=== PATIENT | female | born 1995 | race Caucasian/White ===

== ENCOUNTER 2016-08-01 11:42 | Emergency (ER) | payer OTHER ==
--- NOTE | 2016-08-01 15:04 | ED ORDER SUMMARY ---
..... Patient: MICKEY MARTEL OrderSheet [facility] VisitID: [id number] [address] [place] [address] 20y, F Registration Date/Time: 08/01/2016 ORDER SHEET Weight: 72.5 kg (stated) Allergies: No Known Drug Allergy GENERAL ORDERS: Serum Qualitative Urgent (12:08/01/2016 HBivens A.R.N.P.) (Ack 12:43 TBergley) (12:54 LSullivan R.N.) CBC w Diff Urgent (12:08/01/2016 HBivens A.R.N.P.) (Ack 12:43 TBergley) (12:53 LSullivan R.N.) CMP Urgent (12:08/01/2016 HBivens A.R.N.P.) (Ack 12:43 TBergley) (12:53 LSullivan R.N.) Pelvic Exam Setup (12:08/01/2016 HBivens A.R.N.P.) (12:39 LSullivan R.N.) Type & Rh Urgent (13:25 08/01/2016 TBergley written order HBivens A.R.N.P.) (Ack 13:29 TBergley) (14:32 MWinterer R.N.) Serum Quantitative Urgent (13:25 08/01/2016 TBergley written order HBivens A.R.N.P.) (Ack 13:29 TBergley) (14:32 MWinterer R.N.) US OB 1st Trimester w Transvag (6weeks) Urgent (13:26 08/01/2016 TBergley written order HBivens A.R.N.P.) (Ack 13:29 TBergley) (15:23 LSullivan R.N.) MEDICATION ORDERS: IV FLUIDS: ORDER SHEET NOTES: [Electronically signed by Chitra Delgadillo R.N. (15:23 08/01/2016)] [Electronically signed by Meaghan Garcia.R.N.PTracy (23:19 08/01/2016)] [Electronically locked/signed by Chitra Delgadillo R.N. (15:23 08/01/2016)]
--- NOTE | 2016-08-01 15:04 | ED CLINICAL REPORT ---
Clinical Report - Physicians/Mid Levels [facility] [address] [place] [address] 08/01/2016 11:48 Patient: MICKEY MARTEL Time Seen: 12:09; initial patient contact, initial documentation, patient care assumed. Arrived- By private vehicle. Historian- patient. HISTORY OF PRESENT ILLNESS Chief Complaint: VAGINAL BLEEDING. This started today and still present and worsening. The symptoms are described as moderate. Modifying factors. Not worsened by anything. Not relieved by anything. The patient has had abdominal pain. She has had constant, crampy pelvic pain, described as "pain". She has had abnormal bleeding described as heavier than normal period and passing clots started with spotting, then got heavier like period, and now even heavier than a period. She is . No vaginal pain, low back pain, flank pain, missed period(s) or irregular periods. No vaginal discharge, genital lesions, pain with urination, urinary frequency or urgency of urination. No hematuria. Sexually active- unprotected sex and heterosexual. No exposure to sexually transmitted disease. Does not use control measures. Currently . In 1st trimester. confirmed with urine test. Has had no care. G 2. P 0. Ab 1. Not receiving care. Similar symptoms previously: None. Recent medical care: The patient was seen recently in a clinic. ( went to clinic about a week ago, found out she was ). REVIEW OF SYSTEMS No vomiting, diarrhea, fever, difficulty breathing or chest pain. All systems otherwise negative, except as recorded above. PAST HISTORY See nurses notes. ( PROBLEMS: no known problems. ADDITIONAL SURGERIES: Torn meniscus knee surgery. --12:02 Chitra Delgadillo, RTracyN.). SOCIAL HISTORY Former smoker. No alcohol use or drug use. No recent travel. Is a local resident. FAMILY HISTORY Negative. ADDITIONAL NOTES The nursing notes have been reviewed with agreement regarding the chief complaint, HPI, ROS, PMH and patient medications and allergies. PHYSICAL EXAM Vital Signs: 08/01/2016 11:59 BP: 115/68. HR: 86. RR: 18. O2 saturation: 100%. Temp: 98.7 F. Pain level now: 7/10. Have been reviewed as normal and appear to be correct. Appearance: Alert. Oriented X3. No acute distress. HEENT: Normal external inspection. ENT: Pharynx normal. Neck: Neck supple. CVS: Heart sounds normal. Respiratory: No respiratory distress. Breath sounds normal. Chest nontender. Abdomen: Soft and nontender. Bowel sounds normal. No organomegaly. No mass. Back: Normal external inspection. : External inspection normal. Speculum exam abnormal. Moderate vaginal bleeding, consisting of bright red blood, and dark blood, via the cervical os. No vaginal bleeding from a cervical lesion or vaginal laceration. No vaginal discharge. Cervical os open slightly. No tissue present. No cervicitis. No herpes-like lesions. Bimanual exam normal. Skin: Skin warm and dry. Normal skin color. No rash. Normal skin turgor. Extremities: Extremities nontender. No lower extremity edema. Neuro: Oriented X 3. Mood/affect normal. No motor deficit. No sensory deficit. LABS, X-RAYS, AND EKG Pelvic Sonogram: . no iup no ectopic verbal report from [employer]. Interpretation time: 1445. Laboratory Tests: Serum Qualitative: (JORGE: 08/01/2016 12:50) ( [facility] 08/01/2016 13:12) Final results Test Result Flag Units (Reference) , SERUM POSITIVE CBC w Diff: (JORGE: 08/01/2016 12:50) ( [facility] 08/01/2016 13:00) Final results Test Result Flag Units (Reference) WHITE BLOOD COUNT 4.9 K/uL (4.5-11.5) RED BLOOD COUNT 4.03 M/uL (4.00-5.20) HEMOGLOBIN 12.8 gm/dL (12.0-16.0) HEMATOCRIT 37.4 % (36.0-46.0) MEAN CELL VOLUME 93 fL (80-100) MEAN CORPUSCULAR HGB 32 pg (26-34) MEAN CORPUSCULAR HGB CONC 34 g/dL (31-37) RED CELL DISTRIBUTION WIDTH 11.9 % (11.6-14.8) PLATELET COUNT 230 K/uL (150-400) NEUTROPHIL % 62.5 % (50-75) LYMPH % 23.2 L % (25-40) MONO % 12.4 % (3-14) EOSINOPHIL % 1.5 % (0-4) BASOPHIL % 0.4 % (0-2) Serum Quantitative: (JORGE: 08/01/2016 12:50) ( [facility] 08/01/2016 14:01) Final results Test Result Flag Units (Reference) BETA HCG, QUANTITATIVE 96 mIU/mL REFERENCE RANGE:Adult Males: <2 mIU/mLNon- Females: <6 mIU/mL Females:Approximate Approximate hCGGestational Age Range (mIU/mL) 0-1 week 0-501-2 weeks 40-3002-3 weeks 100-95641-2 weeks 500-06510-0 months 5,000-200,0002-3 months 10,000-100,0002nd trimester 3,000-50,0003rd trimester 1,000-50,000 CMP: (JORGE: 08/01/2016 12:50) ( [facility] 08/01/2016 13:14) Final results Test Result Flag Units (Reference) GLUCOSE 95 mg/dL (70-110) BUN 6 L mg/dL (7-18) CREATININE 0.6 mg/dL (0.6-1.3) Estimated GFR >60 mL/min Estimated GFR- >60 mL/min Note: Persistent reduction over 3 months in eGFR<60 mL/min/1.73 m2 defines CKD. Patients with eGFR values>=60 mL/min/1.73 m2 may also have CKD if evidence ofpersistent proteinuria. Additional information may be foundat www.kidney.org. SODIUM 140 mmol/L (136-145) POTASSIUM 3.5 mmol/L (3.5-5.1) CHLORIDE 103 mmol/L (98-107) CARBON DIOXIDE 26 mmol/L (21-32) CALCIUM 8.7 mg/dL (8.5-10.1) TOTAL PROTEIN 7.6 g/dL (6.4-8.2) ALBUMIN 4.1 g/dL (3.3-5.0) BILIRUBIN, TOTAL 0.3 mg/dL (0.0-1.0) ALKALINE PHOSPHATASE 49 U/L (46-116) AST (SGOT) 13 L U/L (15-37) ALT (SGPT) 18 U/L (12-78) Type & Rh: (JORGE: 08/01/2016 12:50) ( MsgRcvd 08/01/2016 13:58) Final results Test Result Flag Units (Reference) PATIENT BLOOD TYPE O Positive . PROGRESS AND PROCEDURES Patient counseled in person regarding the patient's stable condition, test results and diagnosis. 1455. Differential Diagnosis: I considered vaginitis, vaginal polyps, vaginal lesion, vaginal cancer, vulvar infection, ovarian cysts, polycystic disease of the ovaries, endometriosis, uterine fibroids, intrauterine , ectopic , incomplete , threatened , retained products of , endometritis and dysfunctional uterine bleeding as a possible cause of vaginal bleeding in this patient. This is a partial list of diagnoses considered. Above considerations are based on history, physical exam, reassessment and laboratory data. Differential diagnosis was discussed with patient. Disposition: Discharged home in good and improved condition (15:04). Condition: good and stable. CLINICAL IMPRESSION Complete spontaneous (miscarriage).No complications. INSTRUCTIONS Do not work today, tomorrow. No sexual contact. Warnings: GENERAL WARNINGS: Return or contact your physician immediately if your condition worsens or changes unexpectedly, if not improving as expected, or if other problems arise. Specifically return if problem worsens. Prescription Medications: Ultram 50 mg tablets: take 1-2 orally every 6 hours as needed for pain. Dispense twenty (20). No refills. Substitution is permissible. Understanding of the discharge instructions verbalized by patient. Follow-up with: Jose Marie MD, Obstetrics/Gynecology, , [facility], [address] [place] [address], [facility] Follow up Wednesday even if well. Call for an appointment. Summary of care provided to patient. (Electronically signed by Meaghan Garcia A.R.N.P. 08/01/2016 23:19)
--- NOTE | 2016-08-01 15:04 | ED NURSING NOTES ---
Clinical Report - Nurses [facility] [address] [place] [address] 08/01/2016 11:48 Patient: MICKEY MARTEL TRIAGE Triage time 12:01. Acuity: LEVEL 3. Chief Complaint: ABDOMINAL PAIN and CRAMPS and VAGINAL BLEEDING. Alert. --12:06 Chitra Delgadillo R.N. 11:59 08/01/16. BP: 115/68. HR: 86. RR: 18. O2 saturation: 100%. Temp: 98.7 F. Pain level now: 08/31. --12:06 Chitra Delgadillo R.N. Weight: 72.5 kg stated. Height/Length: 70 inches Per Patient. BMI: 22.9. --12:00 Chitra Delgadillo R.N. Medications None. --12:02 Chitra Delgadillo R.N. Allergies No Known Drug Allergy. --12:02 Chitra Delgadillo R.N. History Arrived by private vehicle. Historian: patient. Accompanied by friend. Primary physician ([facility]). Onset. (2 hours ago). 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 PAST MEDICAL HX: Negative. Immunizations: up-to-date. Currently : 6 or 7 weeks, [facility]. In 1st trimester. confirmed with urine test. G 1. P 0. SOCIAL HX: Former smoker, end date 01/2016. No alcohol use or drug use. SELF HARM ASSESSMENT: A self harm assessment was performed. The patient answered "no" to the question "Do you have thoughts of harming or killing yourself?". NUTRITIONAL RISK ASSESSMENT: The nutritional risk assessment revealed no deficiencies. FUNCTIONAL ASSESSMENT: Functional assessment: no impairments noted. LEARNING NEEDS ASSESSMENT: The learning needs assessment revealed no barriers. ABUSE ASSESSMENT: Abuse assessment: ("yes") The patient was asked "Do you feel safe in your home?". SKIN INTEGRITY ASSESSMENT: Skin integrity risk assessment completed. No skin integrity risk identified. --12:06 Chitra Delgadillo R.N. PROBLEMS: no known problems. ADDITIONAL SURGERIES: Torn meniscus knee surgery. --12:02 Chitra Delgadillo R.N. Interventions ID band on patient. To room. --12:06 Chitra Delgadillo R.N. PHYSICAL ASSESSMENT 12:07 08/01/16. GENERAL / NEURO / PSYCH: Alert. Oriented X 4. --12:07 Chitra Delgadillo R.N. NURSING PROGRESS NOTES 12:08/01/16. Patient identifiers checked. Call light placed in reach. Bed placed in lowest position. Patient ready for evaluation- chart flagged. --12:07 Chitra Delgadillo R.N. 12:15 08/01/16. Patient gowned (and warm blanket applied. JUNIOR WEB DESIGNER cart placed outside of the room.). --12:15 Chitra Delgadillo R.N. PELVIC EXAM: Pelvic exam performed by MANAGER ESTATE. Assisted by one tech. Preparation: patient placed in lithotomy position. Total time of assist / procedure: 15 minutes. --12:40 Chitra Delgadillo R.N. 12:54 08/01/16. ( [place] labs drawn by oil processing technician, sent to lab.). --12:54 Chitra Delgadillo R.N. Checked patient name: patient confirmed. Blood samples drawn from the right antecubital space with 21g butterfly by tech per protocol ; labeled in presence of the patient: rainbow set. --12:57 Margaret Brown 13:38 08/01/16. BP: 115/64. HR: 81. RR: 18. O2 saturation: 100%. Pain level now: 0/10. --13:38 Chitra Delgadillo R.N. DISPOSITION / DISCHARGE Departure time: 1511. Condition at departure: unchanged. No learning barriers present. Discharge instructions provided and reviewed with the patient and family. Reviewed medication(s) information. Prescription(s) given to the patient. Reviewed referral to an advertising analyst and family practice for followup. Patient and family verbalized understanding. Written instructions provided. ( Lab results given to patient, ok'd by MANAGER ESTATE first.). The patient was discharged home and accompanied by family. She left the Emergency Department ambulatory and via private vehicle. --15:17 Chitra Delgadillo R.N. 15:10 08/01/16. BP: 118/82. HR: 80. RR: 18. O2 saturation: 100%. Temp: 98.5 F. Pain level now: 05/01. --15:17 Chitra Delgadillo R.N. Locked/Released at 08/01/2016 15:23 by Chitra Delgadillo R.N.
--- NOTE | 2016-08-01 15:04 | ED NURSING NOTES ---
Clinical Report - Nurses [facility] [address] [place] [address] 08/01/2016 11:48 Patient: MICKEY MARTEL TRIAGE Triage time 12:01. Acuity: LEVEL 3. Chief Complaint: ABDOMINAL PAIN and CRAMPS and VAGINAL BLEEDING. Alert. --12:06 Chitra Delgadillo R.N. 11:59 08/01/16. BP: 115/68. HR: 86. RR: 18. O2 saturation: 100%. Temp: 98.7 F. Pain level now: 08/31. --12:06 Chitra Delgadillo R.N. Weight: 72.5 kg stated. Height/Length: 70 inches Per Patient. BMI: 22.9. --12:00 Chitra Delgadillo R.N. Medications None. --12:02 Chitra Delgadillo R.N. Allergies No Known Drug Allergy. --12:02 Chitra Delgadillo R.N. History Arrived by private vehicle. Historian: patient. Accompanied by friend. Primary physician ([facility]). Onset. (2 hours ago). 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 PAST MEDICAL HX: Negative. Immunizations: up-to-date. Currently : 6 or 7 weeks, [facility]. In 1st trimester. confirmed with urine test. G 1. P 0. SOCIAL HX: Former smoker, end date 01/2016. No alcohol use or drug use. SELF HARM ASSESSMENT: A self harm assessment was performed. The patient answered "no" to the question "Do you have thoughts of harming or killing yourself?". NUTRITIONAL RISK ASSESSMENT: The nutritional risk assessment revealed no deficiencies. FUNCTIONAL ASSESSMENT: Functional assessment: no impairments noted. LEARNING NEEDS ASSESSMENT: The learning needs assessment revealed no barriers. ABUSE ASSESSMENT: Abuse assessment: ("yes") The patient was asked "Do you feel safe in your home?". SKIN INTEGRITY ASSESSMENT: Skin integrity risk assessment completed. No skin integrity risk identified. --12:06 Chitra Delgadillo R.N. PROBLEMS: no known problems. ADDITIONAL SURGERIES: Torn meniscus knee surgery. --12:02 Chitra Delgadillo R.N. Interventions ID band on patient. To room. --12:06 Chitra Delagdillo R.N. PHYSICAL ASSESSMENT 12:07 08/01/16. GENERAL / NEURO / PSYCH: Alert. Oriented X 4. --12:07 Chitra Delgadillo R.N. NURSING PROGRESS NOTES 12:08/01/16. Patient identifiers checked. Call light placed in reach. Bed placed in lowest position. Patient ready for evaluation- chart flagged. --12:07 Chitra Delgadillo R.N. 12:15 08/01/16. Patient gowned (and warm blanket applied. SHINGLE SHEARING MACHINE OPERATOR cart placed outside of the room.). --12:15 Chitra Delgadillo R.N. PELVIC EXAM: Pelvic exam performed by SERVICE EMPLOYEE. Assisted by one tech. Preparation: patient placed in lithotomy position. Total time of assist / procedure: 15 minutes. --12:40 Chitra Delgadillo R.N. 12:54 08/01/16. ( [place] labs drawn by converting technician, sent to lab.). --12:54 Chitra Delgadillo R.N. Checked patient name: patient confirmed. Blood samples drawn from the right antecubital space with 21g butterfly by tech per protocol ; labeled in presence of the patient: rainbow set. --12:57 Margaret Brown 13:38 08/01/16. BP: 115/64. HR: 81. RR: 18. O2 saturation: 100%. Pain level now: 0/10. --13:38 Chitra Delgadillo R.N. DISPOSITION / DISCHARGE Departure time: 1511. Condition at departure: unchanged. No learning barriers present. Discharge instructions provided and reviewed with the patient and family. Reviewed medication(s) information. Prescription(s) given to the patient. Reviewed referral to an brief writer and family practice for followup. Patient and family verbalized understanding. Written instructions provided. ( Lab results given to patient, ok'd by SERVICE EMPLOYEE first.). The patient was discharged home and accompanied by family. She left the Emergency Department ambulatory and via private vehicle. --15:17 Chitra Delgadillo R.N. 15:10 08/01/16. BP: 118/82. HR: 80. RR: 18. O2 saturation: 100%. Temp: 98.5 F. Pain level now: 05/01. --15:17 Chitra Delgadillo R.N. Locked/Released at 08/01/2016 15:23 by Chitra Delgadillo R.N.
--- NOTE | 2016-08-01 15:04 | ED CLINICAL REPORT ---
Clinical Report - Physicians/Mid Levels [facility] [address] [place] [address] 08/01/2016 11:48 Patient: MICKEY MARTEL Time Seen: 12:09; initial patient contact, initial documentation, patient care assumed. Arrived- By private vehicle. Historian- patient. HISTORY OF PRESENT ILLNESS Chief Complaint: VAGINAL BLEEDING. This started today and still present and worsening. The symptoms are described as moderate. Modifying factors. Not worsened by anything. Not relieved by anything. The patient has had abdominal pain. She has had constant, crampy pelvic pain, described as "pain". She has had abnormal bleeding described as heavier than normal period and passing clots started with spotting, then got heavier like period, and now even heavier than a period. She is . No vaginal pain, low back pain, flank pain, missed period(s) or irregular periods. No vaginal discharge, genital lesions, pain with urination, urinary frequency or urgency of urination. No hematuria. Sexually active- unprotected sex and heterosexual. No exposure to sexually transmitted disease. Does not use control measures. Currently . In 1st trimester. confirmed with urine test. Has had no care. G 2. P 0. Ab 1. Not receiving care. Similar symptoms previously: None. Recent medical care: The patient was seen recently in a clinic. ( went to clinic about a week ago, found out she was ). REVIEW OF SYSTEMS No vomiting, diarrhea, fever, difficulty breathing or chest pain. All systems otherwise negative, except as recorded above. PAST HISTORY See nurses notes. ( PROBLEMS: no known problems. ADDITIONAL SURGERIES: Torn meniscus knee surgery. --12:02 Chitra Delgadillo, RTracyN.). SOCIAL HISTORY Former smoker. No alcohol use or drug use. No recent travel. Is a local resident. FAMILY HISTORY Negative. ADDITIONAL NOTES The nursing notes have been reviewed with agreement regarding the chief complaint, HPI, ROS, PMH and patient medications and allergies. PHYSICAL EXAM Vital Signs: 08/01/2016 11:59 BP: 115/68. HR: 86. RR: 18. O2 saturation: 100%. Temp: 98.7 F. Pain level now: 7/10. Have been reviewed as normal and appear to be correct. Appearance: Alert. Oriented X3. No acute distress. HEENT: Normal external inspection. ENT: Pharynx normal. Neck: Neck supple. CVS: Heart sounds normal. Respiratory: No respiratory distress. Breath sounds normal. Chest nontender. Abdomen: Soft and nontender. Bowel sounds normal. No organomegaly. No mass. Back: Normal external inspection. : External inspection normal. Speculum exam abnormal. Moderate vaginal bleeding, consisting of bright red blood, and dark blood, via the cervical os. No vaginal bleeding from a cervical lesion or vaginal laceration. No vaginal discharge. Cervical os open slightly. No tissue present. No cervicitis. No herpes-like lesions. Bimanual exam normal. Skin: Skin warm and dry. Normal skin color. No rash. Normal skin turgor. Extremities: Extremities nontender. No lower extremity edema. Neuro: Oriented X 3. Mood/affect normal. No motor deficit. No sensory deficit. LABS, X-RAYS, AND EKG Pelvic Sonogram: . no iup no ectopic verbal report from [facility]. Interpretation time: 1445. Laboratory Tests: Serum Qualitative: (JORGE: 08/01/2016 12:50) ( [facility] 08/01/2016 13:12) Final results Test Result Flag Units (Reference) , SERUM POSITIVE CBC w Diff: (JORGE: 08/01/2016 12:50) ( [facility] 08/01/2016 13:00) Final results Test Result Flag Units (Reference) WHITE BLOOD COUNT 4.9 K/uL (4.5-11.5) RED BLOOD COUNT 4.03 M/uL (4.00-5.20) HEMOGLOBIN 12.8 gm/dL (12.0-16.0) HEMATOCRIT 37.4 % (36.0-46.0) MEAN CELL VOLUME 93 fL (80-100) MEAN CORPUSCULAR HGB 32 pg (26-34) MEAN CORPUSCULAR HGB CONC 34 g/dL (31-37) RED CELL DISTRIBUTION WIDTH 11.9 % (11.6-14.8) PLATELET COUNT 230 K/uL (150-400) NEUTROPHIL % 62.5 % (50-75) LYMPH % 23.2 L % (25-40) MONO % 12.4 % (3-14) EOSINOPHIL % 1.5 % (0-4) BASOPHIL % 0.4 % (0-2) Serum Quantitative: (JORGE: 08/01/2016 12:50) ( [facility] 08/01/2016 14:01) Final results Test Result Flag Units (Reference) BETA HCG, QUANTITATIVE 96 mIU/mL REFERENCE RANGE:Adult Males: <2 mIU/mLNon- Females: <6 mIU/mL Females:Approximate Approximate hCGGestational Age Range (mIU/mL) 0-1 week 0-501-2 weeks 40-3002-3 weeks 100-64969-4 weeks 500-60536-4 months 5,000-200,0002-3 months 10,000-100,0002nd trimester 3,000-50,0003rd trimester 1,000-50,000 CMP: (JORGE: 08/01/2016 12:50) ( [facility] 08/01/2016 13:14) Final results Test Result Flag Units (Reference) GLUCOSE 95 mg/dL (70-110) BUN 6 L mg/dL (7-18) CREATININE 0.6 mg/dL (0.6-1.3) Estimated GFR >60 mL/min Estimated GFR- >60 mL/min Note: Persistent reduction over 3 months in eGFR<60 mL/min/1.73 m2 defines CKD. Patients with eGFR values>=60 mL/min/1.73 m2 may also have CKD if evidence ofpersistent proteinuria. Additional information may be foundat www.kidney.org. SODIUM 140 mmol/L (136-145) POTASSIUM 3.5 mmol/L (3.5-5.1) CHLORIDE 103 mmol/L (98-107) CARBON DIOXIDE 26 mmol/L (21-32) CALCIUM 8.7 mg/dL (8.5-10.1) TOTAL PROTEIN 7.6 g/dL (6.4-8.2) ALBUMIN 4.1 g/dL (3.3-5.0) BILIRUBIN, TOTAL 0.3 mg/dL (0.0-1.0) ALKALINE PHOSPHATASE 49 U/L (46-116) AST (SGOT) 13 L U/L (15-37) ALT (SGPT) 18 U/L (12-78) Type & Rh: (JORGE: 08/01/2016 12:50) ( MsgRcvd 08/01/2016 13:58) Final results Test Result Flag Units (Reference) PATIENT BLOOD TYPE O Positive . PROGRESS AND PROCEDURES Patient counseled in person regarding the patient's stable condition, test results and diagnosis. 1455. Differential Diagnosis: I considered vaginitis, vaginal polyps, vaginal lesion, vaginal cancer, vulvar infection, ovarian cysts, polycystic disease of the ovaries, endometriosis, uterine fibroids, intrauterine , ectopic , incomplete , threatened , retained products of , endometritis and dysfunctional uterine bleeding as a possible cause of vaginal bleeding in this patient. This is a partial list of diagnoses considered. Above considerations are based on history, physical exam, reassessment and laboratory data. Differential diagnosis was discussed with patient. Disposition: Discharged home in good and improved condition (15:04). Condition: good and stable. CLINICAL IMPRESSION Complete spontaneous (miscarriage).No complications. INSTRUCTIONS Do not work today, tomorrow. No sexual contact. Warnings: GENERAL WARNINGS: Return or contact your physician immediately if your condition worsens or changes unexpectedly, if not improving as expected, or if other problems arise. Specifically return if problem worsens. Prescription Medications: Ultram 50 mg tablets: take 1-2 orally every 6 hours as needed for pain. Dispense twenty (20). No refills. Substitution is permissible. Understanding of the discharge instructions verbalized by patient. Follow-up with: Jose Marie MD, Obstetrics/Gynecology, , [facility], [address] [place] [address], [facility] Follow up Wednesday even if well. Call for an appointment. Summary of care provided to patient. (Electronically signed by Meaghan Garcia A.R.N.P. 08/01/2016 23:19)
--- NOTE | 2016-08-01 15:04 | ED ORDER SUMMARY ---
..... Patient: MICKEY MARTEL OrderSheet [facility] VisitID: [id number] [address] [place] [address] 20y, F Registration Date/Time: 08/01/2016 ORDER SHEET Weight: 72.5 kg (stated) Allergies: No Known Drug Allergy GENERAL ORDERS: Serum Qualitative Urgent (12:08/01/2016 HBivens A.R.N.P.) (Ack 12:43 TBergley) (12:54 LSullivan R.N.) CBC w Diff Urgent (12:08/01/2016 HBivens A.R.N.P.) (Ack 12:43 TBergley) (12:53 LSullivan R.N.) CMP Urgent (12:08/01/2016 HBivens A.R.N.P.) (Ack 12:43 TBergley) (12:53 LSullivan R.N.) Pelvic Exam Setup (12:08/01/2016 HBivens A.R.N.P.) (12:39 LSullivan R.N.) Type & Rh Urgent (13:25 08/01/2016 TBergley written order HBivens A.R.N.P.) (Ack 13:29 TBergley) (14:32 MWinterer R.N.) Serum Quantitative Urgent (13:25 08/01/2016 TBergley written order HBivens A.R.N.P.) (Ack 13:29 TBergley) (14:32 MWinterer R.N.) US OB 1st Trimester w Transvag (6weeks) Urgent (13:26 08/01/2016 TBergley written order HBivens A.R.N.P.) (Ack 13:29 TBergley) (15:23 LSullivan R.N.) MEDICATION ORDERS: IV FLUIDS: ORDER SHEET NOTES: [Electronically signed by Chitra Delgadillo R.N. (15:23 08/01/2016)] [Electronically signed by Meaghan Garcia.R.N.PTracy (23:19 08/01/2016)] [Electronically locked/signed by Chitra Delgadillo R.N. (15:23 08/01/2016)]
--- NOTE | 2016-08-01 17:25 | DIAGNOSTIC IMAGING REPORT ---
PROCEDURE: US OB 1ST TRIMESTER W/TRANSVAG INDICATION: ABNORMAL BLEEDING TECHNIQUE: Flores scale, color, and spectral Doppler transabdominal and endovaginal sonographic images of the first trimester gravid uterus were obtained. COMPARISON: None. FINDINGS: TRANSABDOMINAL SCANS: The uterus is suboptimally evaluated. Urinary bladder is incompletely filled. Adnexa are not well evaluated. Kidneys appear grossly normal. TRANSVAGINAL SCANS: Anteverted uterus contains a tiny junctional zone cyst measuring about 4.3 mm along the posterior wall of the uterine body. The endometrial stripe measures approximately 6.5 mm in thickness. No endometrial fluid collections. The cervix is closed. No endocervical fluid. The right ovary measures 3.8 x 1.6 by 4.8 cm and demonstrates a normal follicular echotexture and vascularity. The left ovary measures 3.7 x 1.5 x 3.2 cm and also contains normal follicular echotexture. No dominant follicles are identified. Normal vascularity in left ovary. No suspicious adnexal masses or free fluid. IMPRESSION: 1. Viable gestation was not identified. Continued follow-up with serial Beta hCG levels is recommended. Follow-up ultrasound in 2-3 weeks recommended if Beta hCG levels continues arise. 2. Posterior midbody junctional zone cyst, less likely an gestational sac. 3. Normal ovaries without corpus luteum cyst visible.
--- NOTE | 2016-08-01 23:19 | ED MED RECONCILIATION SUMMARY ---
Patient: MICKEY MARTEL Medication Reconciliation Report [facility] VisitID: [id number] [address] [place] [address] 20y, F Registration Date/Time: 08/01/2016 Weight: 72.5 kg Height/Length: 70 in. BMI: 22.9 ALLERGIES: No Known Drug Allergy The patient's Home Medications are listed below: NONE. The source(s) of the original Home Medication information: Not obtained. The following Medications were given to the patient in the Emergency Department: None. The following Medications were prescribed to the patient: Ultram 50 mg tablets: take 1-2 orally every 6 hours as needed for pain. Dispense twenty (20). No refills. Substitution is permissible. -- Meaghan Garcia A.R.N.P.
--- NOTE | 2016-08-01 23:19 | ED DISCHARGE INSTRUCTIONS ---
Patient: MICKEY MARTEL General Instructions [facility] VisitID: [id number] [address] [place] [address] 20y, F Registration Date/Time: 08/01/2016 Complete spontaneous (miscarriage).No complications. INSTRUCTIONS Do not work today, tomorrow. No sexual contact. Warnings: GENERAL WARNINGS: Return or contact your physician immediately if your condition worsens or changes unexpectedly, if not improving as expected, or if other problems arise. Specifically return if problem worsens. Prescription Medications: Ultram 50 mg tablets: take 1-2 orally every 6 hours as needed for pain. Dispense twenty (20). No refills. Substitution is permissible. Understanding of the discharge instructions verbalized by patient. Follow-up with: Jose Marie MD, Obstetrics/Gynecology, , [facility], [address] [place] [address] Follow up Wednesday even if well. Call for an appointment. Summary of care provided to patient. ADDITIONAL INFORMATION Miscarriage, Spontaneous (Completed) Todays exam shows that your has ended suddenly. While this may be an emotionally difficult time for you, know that it is not an uncommon event. A miscarriage can be due to various causes. These include a problem with the babys chromosomes (genes that carry the information needed for life) or with fertilization or implantation that didnt happen correctly. In most cases no cause can be found. Be assured that this miscarriage was not the result of anything that you did wrong, and it will not interfere with your ability to become in the future. It appears that your miscarriage is complete and all tissue from the has passed. If there are parts of the tissue that remain in the uterus, you will probably have more cramping and bleeding. Home Care: You may resume normal activities if you are not having heavy bleeding or pain. Until the bleeding stops completely and to prevent infection: Do not have sexual intercourse for as long as your healthcare provider tells you. Use sanitary pads instead of tampons. Do not douche. If you feel sadness or grief, it may help to talk about your feelings with family and friends, or with a counselor. Follow Up: Make an appointment to see your doctor in the next one to two weeks for a checkup. If cramping and bleeding return and continue for more than a few days, call your doctor or return here for an exam. The doctor may need to remove remaining tissue from the uterus to stop the bleeding and prevent infection. Or, you may be prescribed medication to take at home to help your body expel the remaining tissue. Note: If you had an ultrasound it will be reviewed by a specialist. You will be notified of any new findings that may affect your care. Get Prompt Medical Attention if any of the following occur: Heavy bleeding (soaking one new pad an hour over three hours) Bleeding that does not stop after ten days Foul-smelling vaginal discharge Fever of 100.4F (38C) or higher, or as directed by your healthcare provider Increasing lower abdominal pain Weakness, dizziness, or fainting Tramadol Hydrochloride Oral tablet What is this medicine? TRAMADOL (TRA ma dole) is a pain reliever. It is used to treat moderate to severe pain in adults. How should I use this medicine? Take this medicine by mouth with a full glass of water. Follow the directions on the prescription label. If the medicine upsets your stomach, take it with food or milk. Do not take more medicine than you are told to take. Talk to your engineering mechanic regarding the use of this medicine in children. Special care may be needed. What side effects may I notice from receiving this medicine? Side effects that you should report to your doctor or health college and career counselor as soon as possible: allergic reactions like skin rash, itching or hives, swelling of the face, lips, or tongue breathing difficulties, wheezing confusion itching light headedness or fainting spells redness, blistering, peeling or loosening of the skin, including inside the mouth seizures Side effects that usually do not require medical attention (report to your doctor or health college and career counselor if they continue or are bothersome): constipation dizziness drowsiness headache nausea, vomiting What may interact with this medicine? Do not take this medicine with any of the following medications: MAOIs like Carbex, Eldepryl, Marplan, Nardil, and Parnate This medicine may also interact with the following medications: alcohol or medicines that contain alcohol antihistamines benzodiazepines bupropion carbamazepine or oxcarbazepine clozapine cyclobenzaprine digoxin furazolidone linezolid medicines for depression, anxiety, or psychotic disturbances medicines for migraine headache like almotriptan, eletriptan, frovatriptan, naratriptan, rizatriptan, sumatriptan, zolmitriptan medicines for pain like pentazocine, buprenorphine, butorphanol, meperidine, nalbuphine, and propoxyphene medicines for sleep muscle relaxants naltrexone phenobarbital phenothiazines like perphenazine, thioridazine, chlorpromazine, mesoridazine, fluphenazine, prochlorperazine, promazine, and trifluoperazine procarbazine warfarin What if I miss a dose? If you miss a dose, take it as soon as you can. If it is almost time for your next dose, take only that dose. Do not take double or extra doses. Where should I keep my medicine? Keep out of the reach of children. Store at room temperature between 15 and 30 degrees C (59 and 86 degrees F). Keep container tightly closed. Throw away any unused medicine after the expiration date. What should I tell my health care provider before I take this medicine? They need to know if you have any of these conditions: brain tumor depression drug abuse or addiction head injury if you frequently drink alcohol containing drinks kidney disease or trouble passing urine liver disease lung disease, asthma, or breathing problems seizures or epilepsy suicidal thoughts, plans, or attempt; a previous suicide attempt by you or a family member an unusual or allergic reaction to tramadol, codeine, other medicines, foods, dyes, or preservatives or trying to get breast-feeding What should I watch for while using this medicine? Tell your doctor or health college and career counselor if your pain does not go away, if it gets worse, or if you have new or a different type of pain. You may develop tolerance to the medicine. Tolerance means that you will need a higher dose of the medicine for pain relief. Tolerance is normal and is expected if you take this medicine for a long time. Do not suddenly stop taking your medicine because you may develop a severe reaction. Your body becomes used to the medicine. This does NOT mean you are addicted. Addiction is a behavior related to getting and using a drug for a non-medical reason. If you have pain, you have a medical reason to take pain medicine. Your doctor will tell you how much medicine to take. If your doctor wants you to stop the medicine, the dose will be slowly lowered over time to avoid any side effects. You may get drowsy or dizzy. Do not drive, use machinery, or do anything that needs mental alertness until you know how this medicine affects you. Do not stand or sit up quickly, especially if you are an older patient. This reduces the risk of dizzy or fainting spells. Alcohol can increase or decrease the effects of this medicine. Avoid alcoholic drinks. You may have constipation. Try to have a bowel movement at least every 2 to 3 days. If you do not have a bowel movement for 3 days, call your doctor or health college and career counselor. Your mouth may get dry. Chewing sugarless gum or sucking hard candy, and drinking plenty of water may help. Contact your doctor if the problem does not go away or is severe. You have been given the following additional information: Miscarriage, Spontaneous (Completed) Tramadol Hydrochloride Oral tablet Do not work today, tomorrow. (Electronically signed by Meaghan Garcia A.R.N.P. 08/01/2016 23:19)
--- NOTE | 2016-08-01 23:19 | ED DISCHARGE INSTRUCTIONS ---
Patient: MICKEY MARTEL General Instructions [facility] VisitID: [id number] [address] [place] [address] 20y, F Registration Date/Time: 08/01/2016 Complete spontaneous (miscarriage).No complications. INSTRUCTIONS Do not work today, tomorrow. No sexual contact. Warnings: GENERAL WARNINGS: Return or contact your physician immediately if your condition worsens or changes unexpectedly, if not improving as expected, or if other problems arise. Specifically return if problem worsens. Prescription Medications: Ultram 50 mg tablets: take 1-2 orally every 6 hours as needed for pain. Dispense twenty (20). No refills. Substitution is permissible. Understanding of the discharge instructions verbalized by patient. Follow-up with: Jose Marie MD, Obstetrics/Gynecology, , [facility], [address] [place] [address] Follow up Wednesday even if well. Call for an appointment. Summary of care provided to patient. ADDITIONAL INFORMATION Miscarriage, Spontaneous (Completed) Todays exam shows that your has ended suddenly. While this may be an emotionally difficult time for you, know that it is not an uncommon event. A miscarriage can be due to various causes. These include a problem with the babys chromosomes (genes that carry the information needed for life) or with fertilization or implantation that didnt happen correctly. In most cases no cause can be found. Be assured that this miscarriage was not the result of anything that you did wrong, and it will not interfere with your ability to become in the future. It appears that your miscarriage is complete and all tissue from the has passed. If there are parts of the tissue that remain in the uterus, you will probably have more cramping and bleeding. Home Care: You may resume normal activities if you are not having heavy bleeding or pain. Until the bleeding stops completely and to prevent infection: Do not have sexual intercourse for as long as your healthcare provider tells you. Use sanitary pads instead of tampons. Do not douche. If you feel sadness or grief, it may help to talk about your feelings with family and friends, or with a counselor. Follow Up: Make an appointment to see your doctor in the next one to two weeks for a checkup. If cramping and bleeding return and continue for more than a few days, call your doctor or return here for an exam. The doctor may need to remove remaining tissue from the uterus to stop the bleeding and prevent infection. Or, you may be prescribed medication to take at home to help your body expel the remaining tissue. Note: If you had an ultrasound it will be reviewed by a specialist. You will be notified of any new findings that may affect your care. Get Prompt Medical Attention if any of the following occur: Heavy bleeding (soaking one new pad an hour over three hours) Bleeding that does not stop after ten days Foul-smelling vaginal discharge Fever of 100.4F (38C) or higher, or as directed by your healthcare provider Increasing lower abdominal pain Weakness, dizziness, or fainting Tramadol Hydrochloride Oral tablet What is this medicine? TRAMADOL (TRA ma dole) is a pain reliever. It is used to treat moderate to severe pain in adults. How should I use this medicine? Take this medicine by mouth with a full glass of water. Follow the directions on the prescription label. If the medicine upsets your stomach, take it with food or milk. Do not take more medicine than you are told to take. Talk to your clerical warehouseman regarding the use of this medicine in children. Special care may be needed. What side effects may I notice from receiving this medicine? Side effects that you should report to your doctor or health childcare director as soon as possible: allergic reactions like skin rash, itching or hives, swelling of the face, lips, or tongue breathing difficulties, wheezing confusion itching light headedness or fainting spells redness, blistering, peeling or loosening of the skin, including inside the mouth seizures Side effects that usually do not require medical attention (report to your doctor or health childcare director if they continue or are bothersome): constipation dizziness drowsiness headache nausea, vomiting What may interact with this medicine? Do not take this medicine with any of the following medications: MAOIs like Carbex, Eldepryl, Marplan, Nardil, and Parnate This medicine may also interact with the following medications: alcohol or medicines that contain alcohol antihistamines benzodiazepines bupropion carbamazepine or oxcarbazepine clozapine cyclobenzaprine digoxin furazolidone linezolid medicines for depression, anxiety, or psychotic disturbances medicines for migraine headache like almotriptan, eletriptan, frovatriptan, naratriptan, rizatriptan, sumatriptan, zolmitriptan medicines for pain like pentazocine, buprenorphine, butorphanol, meperidine, nalbuphine, and propoxyphene medicines for sleep muscle relaxants naltrexone phenobarbital phenothiazines like perphenazine, thioridazine, chlorpromazine, mesoridazine, fluphenazine, prochlorperazine, promazine, and trifluoperazine procarbazine warfarin What if I miss a dose? If you miss a dose, take it as soon as you can. If it is almost time for your next dose, take only that dose. Do not take double or extra doses. Where should I keep my medicine? Keep out of the reach of children. Store at room temperature between 15 and 30 degrees C (59 and 86 degrees F). Keep container tightly closed. Throw away any unused medicine after the expiration date. What should I tell my health care provider before I take this medicine? They need to know if you have any of these conditions: brain tumor depression drug abuse or addiction head injury if you frequently drink alcohol containing drinks kidney disease or trouble passing urine liver disease lung disease, asthma, or breathing problems seizures or epilepsy suicidal thoughts, plans, or attempt; a previous suicide attempt by you or a family member an unusual or allergic reaction to tramadol, codeine, other medicines, foods, dyes, or preservatives or trying to get breast-feeding What should I watch for while using this medicine? Tell your doctor or health childcare director if your pain does not go away, if it gets worse, or if you have new or a different type of pain. You may develop tolerance to the medicine. Tolerance means that you will need a higher dose of the medicine for pain relief. Tolerance is normal and is expected if you take this medicine for a long time. Do not suddenly stop taking your medicine because you may develop a severe reaction. Your body becomes used to the medicine. This does NOT mean you are addicted. Addiction is a behavior related to getting and using a drug for a non-medical reason. If you have pain, you have a medical reason to take pain medicine. Your doctor will tell you how much medicine to take. If your doctor wants you to stop the medicine, the dose will be slowly lowered over time to avoid any side effects. You may get drowsy or dizzy. Do not drive, use machinery, or do anything that needs mental alertness until you know how this medicine affects you. Do not stand or sit up quickly, especially if you are an older patient. This reduces the risk of dizzy or fainting spells. Alcohol can increase or decrease the effects of this medicine. Avoid alcoholic drinks. You may have constipation. Try to have a bowel movement at least every 2 to 3 days. If you do not have a bowel movement for 3 days, call your doctor or health childcare director. Your mouth may get dry. Chewing sugarless gum or sucking hard candy, and drinking plenty of water may help. Contact your doctor if the problem does not go away or is severe. You have been given the following additional information: Miscarriage, Spontaneous (Completed) Tramadol Hydrochloride Oral tablet Do not work today, tomorrow. (Electronically signed by Meaghan Garcia A.R.N.P. 08/01/2016 23:19)
--- NOTE | 2016-08-01 23:19 | ED MAR SUMMARY ---
..... Medication Administration Record [facility] [address] [place], [place] [id number] Patient: MICKEY MARTEL Visit ID: [id number] 20y, F Weight: 72.5 kg Height/Length: 70 in BMI: 22.9 ALLERGIES: No Known Drug Allergy
--- NOTE | 2016-08-01 23:19 | ED MED RECONCILIATION SUMMARY ---
Patient: MICKEY MARTEL Medication Reconciliation Report [facility] VisitID: [id number] [address] [place] [address] 20y, F Registration Date/Time: 08/01/2016 Weight: 72.5 kg Height/Length: 70 in. BMI: 22.9 ALLERGIES: No Known Drug Allergy The patient's Home Medications are listed below: NONE. The source(s) of the original Home Medication information: Not obtained. The following Medications were given to the patient in the Emergency Department: None. The following Medications were prescribed to the patient: Ultram 50 mg tablets: take 1-2 orally every 6 hours as needed for pain. Dispense twenty (20). No refills. Substitution is permissible. -- Meaghan Garcia A.R.N.P.
--- NOTE | 2016-08-01 23:19 | ED MAR SUMMARY ---
..... Medication Administration Record [facility] [address] [place], [place] [id number] Patient: MICKEY MARTEL Visit ID: [id number] 20y, F Weight: 72.5 kg Height/Length: 70 in BMI: 22.9 ALLERGIES: No Known Drug Allergy
== END 2016-08-01 15:12 | disposition home or self-care (01) ==
LOC: ED SRH 11:42
DX: O03.9 Complete or unspecified spontaneous abortion without complication (principal); Z3A.01 Less than 8 weeks gestation of pregnancy; Z87.891 Personal history of nicotine dependence
CPT/HCPCS: 90001; 90074; 90100; 90155; 90197; 95059; 98428